=== PATIENT | female | born 1975 | race Caucasian/White ===

== ENCOUNTER 2017-05-10 10:17 | Emergency (ER) | payer OTHER ==
[~2017-05-10] VITALS: Ht 147.3 cm; Wt 127.0 kg
[~2017-05-10 10:17] MED LIST: AMOXICILLIN 50500 MG PO; BENTYL 10 MG CA10 M1 PO; HYDROCODONE-AP1 EAC6 PO; HYDROXYZINE HCL25 M2 PO; IBUPROFEN 200200 M1 PO; MOBIC15 MG PO; NORCO 5-325 TA1 EACH PO; PROTONIX40 M4 PO; ROBAXIN 750 MG750 M1 PO; TOPAMAX 25 MG T25 M1 PO; TRAZODONE HCL100 MG PO; TYLENOL PM EX-1 EACH PO; ZANAFLEX4 MG PO; ZOFRAN ODT4 M1 PO
[2017-05-10] MEDS ORDERED: NEURONTIN 300300 M1 PO (10:27)
[2017-05-10] MEDS ORDERED: CELEXA20 MG PO (10:28)
[2017-05-10 11:09] LABS: URINE BILIRUBIN NEGATIVE (Negative); URINE BLOOD 1+ (Negative); URINE COLOR YELLOW; URINE GLUCOSE-RANDOM* NEGATIVE (Negative); URINE KETONES NEGATIVE (Negative); URINE LEUKOCYTES-REFLEX 1+ (Negative); URINE PROTEIN (DIPSTICK) TRACE (Negative); URINE UROBILINOGEN 0.2 E.U./dl (0.2-1.0)
[2017-05-10 11:19] LABS: CASTS None Seen /LPF (None Seen); CRYSTALS None Seen /LPF (None Seen); SQUAMOUS None Seen /LPF (0-3); URINE RBC 3-10 Few /HPF (0-2); URINE WBC-REFLEX >25 Many /HPF (0-5); WBC CLUMPS Few (None Seen)
[2017-05-10 11:39] LABS: ABSOLUTE NEUTROPHILS 5.4 thou/uL (1.4-8.2); BASOPHILS 0.5 % (0.0-2.0); EOSINOPHILS 1.5 % (0.0-3.0); HEMATOCRIT 44.1 % (37.0-47.0); HEMOGLOBIN 15.2 gm/dL (12.0-15.0); LYMPHOCYTES 25.9 % (24.0-44.0); MCH 32.5 pg (26.0-34.0); MCHC 34.3 g/dL (28.0-37.0); MCV 94.5 fL (80.0-100.0); MONOCYTES 5.7 % (1.0-8.0); PLATELET COUNT 276 thou/uL (150-400); POLYS 66.4 % (36.0-66.0); RBC 4.67 mil/uL (4.20-5.00); RDW 14.2 % (10.5-14.5); WBC 8.1 thou/uL (4.0-11.0)
[2017-05-10 11:46] LABS: MANUAL DIFF NO
[2017-05-10 11:50] LABS: CALCIUM 9.6 mg/dL (8.5-10.1); CREATININE 1.1 mg/dL (0.6-1.0)
[2017-05-10 11:56] LABS: ALBUMIN 3.7 g/dL (3.4-5.0); TOTAL BILIRUBIN 0.6 mg/dL (<0.1-1.0)
[2017-05-10] MEDS ORDERED: BENTYL 20 MG TA20 M1 PO (13:06)
[2017-05-10] MEDS ORDERED: KEFLEX250 MG PO (13:06)
== END 2017-05-10 13:52 | disposition home or self-care (01) ==
LOC: ER 10:17
PROVIDERS: Physician Assistant
DX: K45.8 Other specified abdominal hernia without obstruction or gangrene (principal); N39.0 Urinary tract infection, site not specified; F10.99 Alcohol use, unspecified with unspecified alcohol-induced disorder; Z90.710 Acquired absence of both cervix and uterus; Z98.890 Other specified postprocedural states; Z87.891 Personal history of nicotine dependence; Z88.5 Allergy status to narcotic agent; Z88.2 Allergy status to sulfonamides; Z88.8 Allergy status to other drugs, medicaments and biological substances

== ENCOUNTER 2020-08-18 13:56 | Emergency (ER) | payer OTHER ==
[~2020-08-18] VITALS: Ht 147.3 cm; Wt 49.9 kg
[~2020-08-18 13:56] MED LIST changes: +AUGMENTIN 875-1 EACH PO; +BENTYL 20 MG TA20 M1 PO; +CELEXA20 MG PO; +FLONASE 0.05%50 MCG NASAL; +KEFLEX250 MG PO; +NEURONTIN 300300 M1 PO
[2020-08-18 15:02] LABS: URINE BILIRUBIN NEGATIVE (Negative); URINE BLOOD NEGATIVE (Negative); URINE CLARITY CLEAR; URINE COLOR YELLOW; URINE GLUCOSE-RANDOM* NEGATIVE (Negative); URINE KETONES NEGATIVE (Negative); URINE LEUKOCYTES-REFLEX TRACE (Negative); URINE PROTEIN (DIPSTICK) NEGATIVE (Negative); URINE SPECIFIC GRAVITY 1.025 (1.005-1.035); URINE UROBILINOGEN 0.2 E.U./dl (0.2-1.0)
[2020-08-18 15:04] LABS: URINE NITRITE-REFLEX POSITIVE (Negative)
[2020-08-18 15:09] LABS: SQUAMOUS 0-3 Few /LPF (0-3); URINE WBC-REFLEX 6-15 Few /HPF (0-5)
[2020-08-18 15:10] LABS: BACTERIA-REFLEX >30 Many /HPF (None Seen); CRYSTALS None Seen /LPF (None Seen)
[2020-08-18 15:12] LABS: CASTS None Seen /LPF (None Seen)
[2020-08-18 16:36] LABS: AMP/METHAMP Negative (Negative); BARBITURATES Negative (Negative); BENZODIAZEPINES POSITIVE (Negative); COCAINE Negative (Negative); METHADONE Negative (Negative); OPIATES Negative (Negative); PCP Negative (Negative)
[2020-08-18 16:45] LABS: ABSOLUTE NEUTROPHILS 3.3 thou/uL (1.4-8.2); BASOPHILS 0.3 % (0.0-2.0); EOSINOPHILS 0.9 % (0.0-3.0); HEMATOCRIT 36.7 % (37.0-47.0); HEMOGLOBIN 12.4 gm/dL (12.0-15.0); LYMPHOCYTES 42.2 % (24.0-44.0); MCH 32.5 pg (26.0-34.0); MCHC 33.9 g/dL (28.0-37.0); MCV 95.8 fL (80.0-100.0); MONOCYTES 5.3 % (1.0-8.0); PLATELET COUNT 222 thou/uL (150-400); POLYS 51.3 % (36.0-66.0); RBC 3.83 mil/uL (4.20-5.00); WBC 6.5 thou/uL (4.0-11.0)
[2020-08-18 16:55] LABS: CALCIUM 8.6 mg/dL (8.5-10.1); CREATININE 0.7 mg/dL (0.6-1.0); POTASSIUM 3.7 mmol/L (3.5-5.1)
[2020-08-18 17:01] LABS: ALBUMIN 3.1 g/dL (3.4-5.0); TOTAL BILIRUBIN 0.5 mg/dL (0.2-1.0); TOTAL PROTEIN 5.8 g/dL (6.4-8.2)
[2020-08-18] MEDS ORDERED: NORCO5 PO (19:46)
[2020-08-18] MEDS ORDERED: KEFLEX500 M1 PO (19:46)
[2020-08-18 20:08] VITALS: BP 120/63
== END 2020-08-18 20:09 | disposition home or self-care (01) ==
LOC: ER 13:56
PROVIDERS: Emergency Medicine
DX: N39.0 Urinary tract infection, site not specified (principal); Z90.710 Acquired absence of both cervix and uterus; Z87.891 Personal history of nicotine dependence; Z79.899 Other long term (current) drug therapy; Z88.2 Allergy status to sulfonamides; Z88.8 Allergy status to other drugs, medicaments and biological substances

== ENCOUNTER 2020-08-24 13:19 | Emergency (ER) | payer OTHER ==
[~2020-08-24] VITALS: Ht 147.3 cm; Wt 49.9 kg
[~2020-08-24 13:19] MED LIST changes: +KEFLEX500 M1 PO; +NORCO5 PO
[2020-08-24 13:59] LABS: ABSOLUTE NEUTROPHILS 3.7 thou/uL (1.4-8.2); BASOPHILS 0.6 % (0.0-2.0); EOSINOPHILS 1.1 % (0.0-3.0); HEMATOCRIT 40.9 % (37.0-47.0); HEMOGLOBIN 13.3 gm/dL (12.0-15.0); LYMPHOCYTES 34.3 % (24.0-44.0); MCH 31.4 pg (26.0-34.0); MCHC 32.5 g/dL (28.0-37.0); MCV 96.6 fL (80.0-100.0); MONOCYTES 3.9 % (1.0-8.0); PLATELET COUNT 217 thou/uL (150-400); POLYS 60.1 % (36.0-66.0); RBC 4.24 mil/uL (4.20-5.00); RDW 14.4 % (10.5-14.5); WBC 6.2 thou/uL (4.0-11.0)
[2020-08-24 14:28] LABS: CALCIUM 8.8 mg/dL (8.5-10.1); CREATININE 0.9 mg/dL (0.6-1.0); POTASSIUM 3.8 mmol/L (3.5-5.1)
[2020-08-24 14:34] LABS: ALBUMIN 3.4 g/dL (3.4-5.0); TOTAL BILIRUBIN 0.5 mg/dL (0.2-1.0); TOTAL PROTEIN 6.2 g/dL (6.4-8.2)
[2020-08-24] MEDS ORDERED: CYCLOBENZAPRINE5 MG PO (15:24)
[2020-08-24] MEDS ORDERED: NORCO 10-325 T1 EACH PO (15:24)
[2020-08-24 15:44] VITALS: BP 131/63
== END 2020-08-24 15:46 | disposition home or self-care (01) ==
LOC: ER 13:19
PROVIDERS: Emergency Medicine
DX: S20.211A Contusion of right front wall of thorax, initial encounter (principal); S70.01XA Contusion of right hip, initial encounter; S09.90XA Unspecified injury of head, initial encounter; Z90.710 Acquired absence of both cervix and uterus; Z79.899 Other long term (current) drug therapy; Z87.891 Personal history of nicotine dependence; Z88.2 Allergy status to sulfonamides; Z88.5 Allergy status to narcotic agent; Z88.8 Allergy status to other drugs, medicaments and biological substances; V49.9XXA Car occupant (driver) (passenger) injured in unspecified traffic accident, initial encounter; Y93.89 Activity, other specified; Y92.89 Other specified places as the place of occurrence of the external cause; Y99.8 Other external cause status

== ENCOUNTER 2020-08-31 09:30 | Emergency (ER) | payer OTHER ==
[~2020-08-31] VITALS: Ht 147.3 cm; Wt 49.9 kg
[~2020-08-31 09:30] MED LIST changes: +CYCLOBENZAPRINE5 MG PO; +NORCO 10-325 T1 EACH PO
[2020-08-31] MEDS ORDERED: NORVASC 2.5 MG2.5 M1 PO (09:39)
[2020-08-31] MEDS ORDERED: QUETIAPINE FUMA25 MG PO (09:40)
[2020-08-31] MEDS ORDERED: ULTRAM 50MG TAB50 MG PO (12:26)
[2020-08-31 12:39] VITALS: BP 124/72
== END 2020-08-31 12:40 | disposition home or self-care (01) ==
LOC: ER 09:30
DX: R07.89 Other chest pain (principal); R07.81 Pleurodynia; Z90.49 Acquired absence of other specified parts of digestive tract; Z90.710 Acquired absence of both cervix and uterus; Z79.899 Other long term (current) drug therapy; Z87.891 Personal history of nicotine dependence; Z88.2 Allergy status to sulfonamides; Z88.5 Allergy status to narcotic agent; Z88.8 Allergy status to other drugs, medicaments and biological substances